=== PATIENT | female | born 1960 | race African-American/Black ===

== ENCOUNTER → 2017-01-25 | Outpatient (CLI) | payer MEDICARE, MEDICAID ==
[~2017-01-25] MED LIST: AMLO10TA4 PO; ASPI-1159 PO; CLON-364; FAMO20TA8 PO; FOLI-43 PO; GABA-531 PO; HYDR-523 PO; IBUP100T54; LISI-604 PO; METF500T PO; OMEP40CA34 PO; OYSTER SHELL CALCIUM PO; SIMV10TA2 PO; [UNRECOGNIZED DRUG - CODE]
== END | disposition home or self-care (01) ==
LOC: MAMMO 09:00
PROVIDERS: ATTEND Internal Medicine Nephrology
DX: Z12.31 Encounter for screening mammogram for malignant neoplasm of breast (principal)
CPT/HCPCS: G0202

== ENCOUNTER → 2017-02-08 | Outpatient (CLI) | payer MEDICARE, MEDICAID | END | disposition home or self-care (01) | LOC: US 09:32 | PROVIDERS: ATTEND Internal Medicine Nephrology | DX: N63 Unspecified lump in breast (principal) | CPT/HCPCS: 76641 ==

== ENCOUNTER → 2017-12-09 | Outpatient (CLI) | payer MEDICARE, MEDICAID | END | disposition home or self-care (01) | LOC: CT 14:14 | PROVIDERS: ATTEND Internal Medicine Nephrology | DX: N20.0 Calculus of kidney (principal); R06.02 Shortness of breath; R63.4 Abnormal weight loss; R05 Cough; Z90.49 Acquired absence of other specified parts of digestive tract | CPT/HCPCS: 71250 ==

== ENCOUNTER 2018-04-21 17:15 | Inpatient (IN) | payer MEDICARE, MEDICAID ==
[~2018-04-21] VITALS: Ht 165.1 cm; Wt 88.5 kg
[2018-04-21] MEDS ORDERED: SODIUM CHLORIDE 0.9% 500 ML IV ONE (18:28)
[2018-04-21] MEDS ORDERED: ONDANSETRON HCL 4MG/2ML INJ IV STA (18:28)
[2018-04-21] MEDS ORDERED: MORPHINE SULFATE 4 MG/ML CPJ (NOT FOR IM USE) IV STA (18:28)
[2018-04-21] MEDS ORDERED: ACETAMINOPHEN 325MG TABLET PO STA (18:28)
[2018-04-21] MEDS ORDERED: VANCOMYCIN 1 G PREMIX 200 ML IV ONE (18:30)
[2018-04-21] MEDS ORDERED: PIPERACILLIN/TAZ 3.375G PREMIX 50 ML IV ONE (18:30)
[2018-04-21] MEDS ORDERED: ASPIRIN 81MG TABLET PO ONE (18:30)
[2018-04-21] MEDS ORDERED: DIPHENHYDRAMINE 50MG/ML VIAL IV ONE ×2 (20:00→20:30)
[2018-04-21 20:15] LABS: HEMATOCRIT. 36.9 % (36.0-48.0); HEMOGLOBIN. 12.5 g/dL (12.0-16.0); MEAN CORPUSCULAR HEMOGLOBIN 29.8 pg (28.0-32.0); MEAN CORPUSCULAR VOLUME 87.9 fL (81.0-99.0); MEAN PLATELET VOLUME 8.2 fl (7.4-10.4); PLATELET 258 x1000/uL (130-400); RED BLOOD CELL COUNT 4.19 mill/uL (4.2-5.4); RED CELL DISTRIBUTION WIDTH 12.8 % (11.6-14.6)
[2018-04-21 20:21] LABS: CHLORIDE 107 mEq/L (98-107); INR 1.1; PROTHROMBIN TIME 11.3 sec (9.1-11.1)
[2018-04-21 20:25] LABS: ETHANOL BLOOD < 10 mg/dL
[2018-04-21 20:30] LABS: CREATINE KINASE 110 IU/L (26-192)
[2018-04-21] MEDS ORDERED: FAMOTIDINE 20MG/2ML VIAL IV ONE (20:30)
[2018-04-21] MEDS ORDERED: MAGNESIUM/ALUMINUM HYDROXIDE/SIMETHICONE 30ML UDC PO ONE (20:30)
[2018-04-21] MEDS ORDERED: IPRATROPIUM/ALBUTEROL 0.5-3(2.5)MG/3ML NEB HHN ONE (20:45)
[2018-04-21] MEDS ORDERED: METHYLPREDNISOLONE SOD SUCC 125 MG/2 ML VIAL IV ONE (20:45)
[2018-04-21 21:02] LABS: PLATELET ESTIMATE NORMAL
[2018-04-21 22:30] VITALS: BP 131/62
[2018-04-21] MEDS ORDERED: ONDANSETRON HCL 4MG/2ML INJ IV PRN (23:00)
[2018-04-21] MEDS ORDERED: MAGNESIUM/ALUMINUM HYDROXIDE/SIMETHICONE 30ML UDC PO PRN (23:00)
[2018-04-21] MEDS ORDERED: LORAZEPAM 2MG/ML CPJ IV PRN (23:00)
[2018-04-21] MEDS: AMLODIPINE 2.5MG TABLET PO SCH (23:25)
[2018-04-21] MEDS ORDERED: DEXTROSE 50% WATER 50ML SYRINGE IV PRN (23:30)
[2018-04-21 23:40] LABS: CLARITY URINE CLOUDY (CLEAR); COLOR URINE YELLOW (YELLOW); KETONES URINE 1+ (NEGATIVE); LEUKOCYTE ESTERASE URINE NEGATIVE (NEGATIVE); NITRITE URINE NEGATIVE (NEGATIVE); OCCULT BLOOD URINE NEGATIVE (NEGATIVE); PROTEIN URINE NEGATIVE (NEGATIVE); SPECIFIC GRAVITY URINE 1.029 (1.005-1.030)
[2018-04-21 23:53] LABS: OPIATES URINE SCREEN PRESUMTIVE POSITIVE (NEGATIVE)
[2018-04-21 23:54] LABS: *BARBITURATES SCREEN URINE NEGATIVE (NEGATIVE); *BENZODIAZEPINES SCREEN URINE NEGATIVE (NEGATIVE); CANNABINOID URINE SCREEN NEGATIVE (NEGATIVE); PHENCYCLIDINE URINE SCREEN NEGATIVE (NEGATIVE)
[2018-04-21 23:55] LABS: *AMPHETAMINES SCREEN URINE NEGATIVE (NEGATIVE); *COCAINE SCREEN URINE NEGATIVE (NEGATIVE); METHADONE URINE SCREEN NEGATIVE (NEGATIVE)
[2018-04-22 01:08] VITALS: BP 115/52
[2018-04-22 04:00] VITALS: BP 117/69
[2018-04-22] MEDS: INSULIN LISPRO 100 UNITS/ML SUBCUT SCH ×4 (06:27→21:03)
[2018-04-22] MEDS: BLOOD SUGAR DIAGNOSTIC STRIP TEST SCH ×4 (06:27→21:02)
[2018-04-22 06:28] LABS: BASOPHILS % 0.1 % (0.0-2.0); HEMATOCRIT. 38.1 % (36.0-48.0); HEMOGLOBIN. 12.8 g/dL (12.0-16.0); LYMPHOCYTES % 11.9 % (20.0-50.0); MEAN CORPUSCULAR HEMOGLOBIN 29.6 pg (28.0-32.0); MEAN CORPUSCULAR VOLUME 87.9 fL (81.0-99.0); MEAN PLATELET VOLUME 8.2 fl (7.4-10.4); MONOCYTES % 1.6 % (2.0-8.0); NEUTROPHILS % 86.4 % (40.0-76.0); PLATELET 266 x1000/uL (130-400); RED BLOOD CELL COUNT 4.34 mill/uL (4.2-5.4)
[2018-04-22] MEDS: ACETAMINOPHEN 325MG TABLET PO PRN (06:31)
[2018-04-22 06:34] LABS: CHLORIDE 107 mEq/L (98-107)
[2018-04-22 06:43] LABS: PHOSPHORUS 4.4 mg/dL (2.5-4.9)
[2018-04-22 06:48] LABS: CREATINE KINASE MB FRACTION < 1.0 ng/mL (0.5-3.6)
[2018-04-22 08:00] VITALS: BP 134/65
[2018-04-22] MEDS ORDERED: PNEUMOCOCCAL 23-VAL P-SAC VAC 0.5 ML IM ONE (08:00)
[2018-04-22] MEDS: AMLODIPINE 2.5MG TABLET PO SCH ×2 (09:02→21:03)
[2018-04-22] MEDS: ENOXAPARIN 40MG/0.4ML SYR SUBCUT SCH (09:03)
[2018-04-22] MEDS ORDERED: INFLUENZA VIRUS VACCINE(AFLURIA) 0.5ML SYR IM ONE (10:00)
[2018-04-22 12:00] VITALS: BP 126/82
[2018-04-22] MEDS ORDERED: AZITHROMYCIN 500 MG in DEXT 5% WATER 250 ML IV SCH ×2 (15:00→20:00)
[2018-04-22 16:00] VITALS: BP 145/61
[2018-04-22 16:33] LABS: CREATINE KINASE MB FRACTION < 1.0 ng/mL (0.5-3.6)
[2018-04-22] MEDS: CEFTRIAXONE 1 G PREMIX 50 ML IV SCH (17:56)
[2018-04-22 20:00] VITALS: BP 137/60
[2018-04-22] MEDS: AZITHROMYCIN 500 MG in DEXT 5% WATER 250 ML IV SCH (20:09)
[2018-04-22] MEDS: PROMETHAZINE/DEXTROMETHORPHAN 6.25-15MG/5ML BOTTLE 120ML PO PRN (21:15)
[2018-04-23] VITALS (7 sets, daily range): BP systolic 118–133; BP diastolic 47–72
[2018-04-23] MEDS: ACETAMINOPHEN 325MG TABLET PO PRN ×2 (02:26→20:13)
[2018-04-23] MEDS: BLOOD SUGAR DIAGNOSTIC STRIP TEST SCH ×4 (07:00→21:00)
[2018-04-23] MEDS: INSULIN LISPRO 100 UNITS/ML SUBCUT SCH ×4 (07:00→21:00)
[2018-04-23] MEDS: PROMETHAZINE/DEXTROMETHORPHAN 6.25-15MG/5ML BOTTLE 120ML PO PRN ×2 (08:03→20:12)
[2018-04-23] MEDS: AMLODIPINE 2.5MG TABLET PO SCH ×2 (09:10→21:05)
[2018-04-23] MEDS: ENOXAPARIN 40MG/0.4ML SYR SUBCUT SCH (09:11)
[2018-04-23] MEDS: CEFTRIAXONE 1 G PREMIX 50 ML IV SCH (15:00)
[2018-04-23] MEDS: AZITHROMYCIN 500 MG in DEXT 5% WATER 250 ML IV SCH (16:08)
[2018-04-23] MEDS ORDERED: AZITHROMYCIN 500 MG in DEXT 5% WATER 250 ML IV SCH (20:00)
[2018-04-24] VITALS: BP 125/58
[2018-04-24 04:00] VITALS: BP 138/62
[2018-04-24] MEDS: BLOOD SUGAR DIAGNOSTIC STRIP TEST SCH ×2 (07:10→11:12)
[2018-04-24] MEDS: INSULIN LISPRO 100 UNITS/ML SUBCUT SCH ×2 (07:34→11:55)
[2018-04-24 07:41] LABS: HEMOGLOBIN. 13.1 g/dL (12.0-16.0); MEAN CORPUSCULAR HEMOGLOBIN 29.6 pg (28.0-32.0); MEAN PLATELET VOLUME 8.5 fl (7.4-10.4); PLATELET 261 x1000/uL (130-400); RED BLOOD CELL COUNT 4.43 mill/uL (4.2-5.4); RED CELL DISTRIBUTION WIDTH 12.9 % (11.6-14.6)
[2018-04-24 08:03] VITALS: BP 130/69
[2018-04-24] MEDS: ENOXAPARIN 40MG/0.4ML SYR SUBCUT SCH (08:05)
[2018-04-24] MEDS: AMLODIPINE 2.5MG TABLET PO SCH (08:05)
[2018-04-24] MEDS: PROMETHAZINE/DEXTROMETHORPHAN 6.25-15MG/5ML BOTTLE 120ML PO PRN (08:05)
[2018-04-24 08:18] LABS: CHLORIDE 106 mEq/L (98-107)
[2018-04-24 08:24] LABS: PHOSPHORUS 3.3 mg/dL (2.5-4.9)
[2018-04-24 11:46] VITALS: BP 138/60
[2018-04-24 12:00] VITALS: BP 138/60
[2018-04-24 12:36] LABS: PLATELET ESTIMATE NORMAL
== END 2018-04-24 14:40 | disposition home or self-care (01) | DRG 202 ==
LOC: ER 17:15 → 8WST 20:43 → EDBEDREQ 20:58 → EDBEDREQSVC 20:59 → ENRESERV 21:09 → CANRESERV 21:09 → ENRESERV 21:54
PROVIDERS: ADMIT Internal Medicine Nephrology; ATTEND Internal Medicine Nephrology
DX: J20.9 Acute bronchitis, unspecified (principal); E44.1 Mild protein-calorie malnutrition; R07.89 Other chest pain; E11.9 Type 2 diabetes mellitus without complications; I10 Essential (primary) hypertension; Z68.32 Body mass index [BMI] 32.0-32.9, adult; Z88.6 Allergy status to analgesic agent; Z88.5 Allergy status to narcotic agent; Z79.899 Other long term (current) drug therapy; Z79.82 Long term (current) use of aspirin; Z79.84 Long term (current) use of oral hypoglycemic drugs
CPT/HCPCS: 36415; 71045; 80048; 80305; 82550; 82553; 82962; 83605; 83735; 83880; 84100; 84145; 84484; 87804; 90686; 90732; 93005; 93306; 94640; 96361; 96365; 96368; 96375; 99285; G0482; J0456; J0696; J1200; J1650; J1815; J2270; J2405; J2543; J2930; J3370; J3490; J7030; J7040; J7050; J7060; J7620

== ENCOUNTER 2018-09-24 08:37 | Emergency (ER) | payer MEDICARE, MEDICAID ==
[~2018-09-24] VITALS: Ht 162.6 cm; Wt 113.0 kg
[2018-09-24] MEDS ORDERED: HYDROCODONE/ACETAMINOPHEN 5/325MG TABLET PO ONE (10:00)
[2018-09-24 10:45] VITALS: BP 127/71
== END 2018-09-24 10:45 | disposition home or self-care (01) ==
LOC: ER 09:09
DX: L84 Corns and callosities (principal); E11.9 Type 2 diabetes mellitus without complications; I10 Essential (primary) hypertension; Z98.890 Other specified postprocedural states; Z79.82 Long term (current) use of aspirin; Z79.899 Other long term (current) drug therapy; Z88.5 Allergy status to narcotic agent
CPT/HCPCS: 73630; 99283

== ENCOUNTER 2018-12-19 16:03 | Emergency (ER) | payer MEDICARE, MEDICAID ==
[~2018-12-19] VITALS: Ht 170.2 cm; Wt 117.0 kg
[~2018-12-19 16:03] MED LIST changes: -ASPI-1159 PO; +ASPI-1393 PO
[2018-12-19] MEDS ORDERED: SODIUM CHLORIDE 0.9% 1,000 ML IV ONE (17:23)
[2018-12-19] MEDS ORDERED: ONDANSETRON HCL 4MG/2ML INJ IV STA (17:23)
[2018-12-19] MEDS ORDERED: KETOROLAC 15MG/ML VIAL IV ONE (17:30)
[2018-12-19 17:56] LABS: BASOPHILS % 0.5 % (0.0-2.0); HEMATOCRIT. 36.7 % (36.0-48.0); HEMOGLOBIN. 12.3 g/dL (12.0-16.0); LYMPHOCYTES % 31.5 % (20.0-50.0); MEAN CORPUSCULAR HEMOGLOBIN 29.4 pg (28.0-32.0); MEAN CORPUSCULAR VOLUME 87.4 fL (81.0-99.0); MONOCYTES % 10.6 % (2.0-8.0); NEUTROPHILS % 55.4 % (40.0-76.0); PLATELET 285 x1000/uL (130-400); RED CELL DISTRIBUTION WIDTH 13.8 % (11.6-14.6)
[2018-12-19 18:03] LABS: PROTHROMBIN TIME 9.9 sec (9.6-11.0)
[2018-12-19 18:05] LABS: CHLORIDE 110 mEq/L (98-107)
[2018-12-19 19:01] LABS: CLARITY URINE CLOUDY (CLEAR); COLOR URINE YELLOW (YELLOW); KETONES URINE NEGATIVE (NEGATIVE); LEUKOCYTE ESTERASE URINE NEGATIVE (NEGATIVE); NITRITE URINE NEGATIVE (NEGATIVE); OCCULT BLOOD URINE NEGATIVE (NEGATIVE); PROTEIN URINE NEGATIVE (NEGATIVE); SPECIFIC GRAVITY URINE 1.029 (1.005-1.030)
[2018-12-19 19:19] VITALS: BP 131/51
== END 2018-12-19 19:20 | disposition home or self-care (01) ==
LOC: ER 16:03
DX: R11.10 Vomiting, unspecified (principal); R19.7 Diarrhea, unspecified; E11.9 Type 2 diabetes mellitus without complications; I10 Essential (primary) hypertension; Z79.82 Long term (current) use of aspirin; Z79.899 Other long term (current) drug therapy; Z88.5 Allergy status to narcotic agent
CPT/HCPCS: 36415; 74176; 80053; 81003; 83690; 85025; 85610; 96361; 96374; 96375; 99284; J1885; J2405; J7030

== ENCOUNTER 2019-03-29 14:35 | Inpatient (IN) | payer MEDICARE, MEDICAID ==
[~2019-03-29] VITALS: Ht 160 cm; Wt 99.8 kg
[2019-03-29] MEDS ORDERED: ONDANSETRON HCL 4MG/2ML INJ IV STA (17:48)
[2019-03-29] MEDS ORDERED: MORPHINE SULFATE 4 MG/ML CPJ (NOT FOR IM USE) IV STA (17:48)
[2019-03-29] MEDS ORDERED: METRONIDAZOLE 500 MG PREMIX 100 ML IV ONE (18:00)
[2019-03-29] MEDS ORDERED: PIPERACILLIN/TAZ 3.375G PREMIX 50 ML IV ONE (18:00)
[2019-03-29 18:06] LABS: BASOPHILS % 0.4 % (0.0-2.0); EOSINOPHILS % 1.3 % (0.0-5.0); HEMATOCRIT. 37.4 % (36.0-48.0); HEMOGLOBIN. 12.6 g/dL (12.0-16.0); LYMPHOCYTES % 35.2 % (20.0-50.0); MEAN CORPUSCULAR HEMOGLOBIN 29.3 pg (28.0-32.0); MEAN CORPUSCULAR VOLUME 86.9 fL (81.0-99.0); MEAN PLATELET VOLUME 8.3 fl (7.4-10.4); MONOCYTES % 12.9 % (2.0-8.0); NEUTROPHILS % 50.2 % (40.0-76.0); PLATELET 324 x1000/uL (130-400); RED CELL DISTRIBUTION WIDTH 13.2 % (11.6-14.6)
[2019-03-29 18:11] LABS: CHLORIDE 109 mEq/L (98-107)
[2019-03-29 18:13] LABS: PARTIAL THROMBOPLASTIN TIME 29.1 sec (23.4-31.0); PROTHROMBIN TIME 10.2 sec (9.6-11.0)
[2019-03-29 18:15] LABS: ETHANOL BLOOD < 10 mg/dL
[2019-03-29] MEDS ORDERED: KETOROLAC 15MG/ML VIAL IV ONE (21:00)
[2019-03-29] MEDS ORDERED: MORPHINE SULFATE 4 MG/ML CPJ (NOT FOR IM USE) IV ONE (21:00)
[2019-03-29] MEDS ORDERED: ONDANSETRON HCL 4MG/2ML INJ IV ONE (21:00)
[2019-03-29] MEDS ORDERED: GUAIFENESIN 200MG/10ML SUGAR FREE UDC PO PRN (21:30)
[2019-03-29] MEDS ORDERED: CLONIDINE 0.1MG TABLET PO PRN (21:30)
[2019-03-29] MEDS ORDERED: TRAMADOL 50MG TABLET PO PRN (21:30)
[2019-03-29] MEDS ORDERED: DOCUSATE SODIUM 100MG CAPSULE PO PRN (21:30)
[2019-03-29] MEDS ORDERED: IPRATROPIUM/ALBUTEROL 0.5-3(2.5)MG/3ML NEB NEB PRN (21:30)
[2019-03-29] MEDS ORDERED: MAGNESIUM/ALUMINUM HYDROXIDE/SIMETHICONE 30ML UDC PO PRN (21:30)
[2019-03-29] MEDS ORDERED: LORAZEPAM 0.5MG TABLET PO PRN (21:30)
[2019-03-29] MEDS ORDERED: KETOROLAC 15MG/ML VIAL IV PRN (21:30)
[2019-03-29] MEDS ORDERED: ENOXAPARIN 40MG/0.4ML SYR SUBCUT SCH (21:30)
[2019-03-29] MEDS ORDERED: ACETAMINOPHEN 325MG TABLET PEG PRN (21:30)
[2019-03-29] MEDS ORDERED: ZOLPIDEM TARTRATE 5MG TABLET PO PRN (21:30)
[2019-03-29] MEDS ORDERED: NA PHOS,M-B/NA PHOS,DI-BA ENEMA 118ML PR PRN (21:30)
[2019-03-29] MEDS ORDERED: NITROGLYCERIN 0.4MG TABLET SL SL PRN (21:30)
[2019-03-29] MEDS ORDERED: DEXTROSE 50% WATER 50ML SYRINGE IV PRN (21:30)
[2019-03-29] MEDS ORDERED: ONDANSETRON HCL 4MG/2ML INJ IV PRN (21:30)
[2019-03-29 22:30] VITALS: BP 143/56
[2019-03-29] MEDS: GABAPENTIN 100MG CAPSULE PO SCH (23:30)
[2019-03-30] VITALS: BP 143/56
[2019-03-30 00:16] LABS: *AMPHETAMINES SCREEN URINE NEGATIVE (NEGATIVE); *BARBITURATES SCREEN URINE NEGATIVE (NEGATIVE); *BENZODIAZEPINES SCREEN URINE NEGATIVE (NEGATIVE); *COCAINE SCREEN URINE NEGATIVE (NEGATIVE)
[2019-03-30 00:17] LABS: CANNABINOID URINE SCREEN NEGATIVE (NEGATIVE); METHADONE URINE SCREEN NEGATIVE (NEGATIVE); OPIATES URINE SCREEN NEGATIVE (NEGATIVE); PHENCYCLIDINE URINE SCREEN NEGATIVE (NEGATIVE)
[2019-03-30] MEDS: METRONIDAZOLE 500 MG PREMIX 100 ML IV SCH ×3 (02:03→23:04)
[2019-03-30] MEDS: GABAPENTIN 100MG CAPSULE PO SCH ×3 (06:32→23:04)
[2019-03-30] MEDS: BLOOD SUGAR DIAGNOSTIC STRIP TEST SCH ×4 (06:35→20:45)
[2019-03-30] MEDS: INSULIN LISPRO 100 UNITS/ML SUBCUT SCH ×4 (07:50→21:02)
[2019-03-30 08:00] VITALS: BP 120/56
[2019-03-30] MEDS: METOPROLOL TARTRATE 25MG TABLET PO SCH ×2 (09:00→20:42)
[2019-03-30] MEDS: AMLODIPINE 10MG TABLET PO SCH (09:25)
[2019-03-30] MEDS: FAMOTIDINE 20MG TABLET PO SCH ×2 (09:25→20:43)
[2019-03-30] MEDS: LISINOPRIL 20MG TABLET PO SCH ×2 (09:26→20:43)
[2019-03-30] MEDS: ENOXAPARIN 30MG/0.3ML SYR SUBCUT SCH ×2 (09:29→20:45)
[2019-03-30 12:00] VITALS: BP 120/56
[2019-03-30] MEDS: HYDROCODONE/ACETAMINOPHEN 10/325MG TABLET PO PRN ×2 (15:38→23:15)
[2019-03-30 16:00] VITALS: BP 125/59
[2019-03-30 20:00] VITALS: BP 123/77
[2019-03-30] MEDS ORDERED: LEVOFLOXACIN 500MG PREMIX 100 ML IV SCH ×2 (21:00)
[2019-03-31] VITALS: BP 101/68
[2019-03-31 04:00] VITALS: BP 93/66
[2019-03-31] MEDS: GABAPENTIN 100MG CAPSULE PO SCH (05:28)
[2019-03-31] MEDS: METRONIDAZOLE 500 MG PREMIX 100 ML IV SCH (05:28)
[2019-03-31] MEDS: BLOOD SUGAR DIAGNOSTIC STRIP TEST SCH (06:22)
[2019-03-31] MEDS: INSULIN LISPRO 100 UNITS/ML SUBCUT SCH (07:35)
[2019-03-31] MEDS: HYDROCODONE/ACETAMINOPHEN 10/325MG TABLET PO PRN (07:46)
[2019-03-31 08:00] VITALS: BP 125/60
[2019-03-31] MEDS: METOPROLOL TARTRATE 25MG TABLET PO SCH (09:00)
[2019-03-31] MEDS: LISINOPRIL 20MG TABLET PO SCH (09:14)
[2019-03-31] MEDS: AMLODIPINE 10MG TABLET PO SCH (09:15)
[2019-03-31] MEDS: FAMOTIDINE 20MG TABLET PO SCH (09:15)
[2019-03-31] MEDS: ENOXAPARIN 30MG/0.3ML SYR SUBCUT SCH (09:17)
[2019-03-31 11:36] VITALS: BP 128/63
[2019-03-31 12:00] VITALS: BP 128/60
== END 2019-03-31 12:19 | disposition home or self-care (01) | DRG 392 ==
LOC: ER 14:35 → EDBEDREQ 21:01 → 6EST 21:20 → EDBEDREQSVC 21:24 → EDBEDREQ 21:24 → EDBEDREQTM 21:24 → SUPCPDRO 21:26 → ENRESERV 21:29
PROVIDERS: ADMIT Internal Medicine; ATTEND Internal Medicine
DX: R19.7 Diarrhea, unspecified (principal); E11.9 Type 2 diabetes mellitus without complications; E66.9 Obesity, unspecified; G89.4 Chronic pain syndrome; I10 Essential (primary) hypertension; Z79.4 Long term (current) use of insulin; Z90.49 Acquired absence of other specified parts of digestive tract; Z88.6 Allergy status to analgesic agent; Z68.39 Body mass index [BMI] 39.0-39.9, adult
CPT/HCPCS: 36415; 71045; 74176; 80061; 80305; 80320; 82962; 83036; 83605; 83880; 84145; 84484; 93005; 93970; 96365; 96366; 96375; 97162; 97165; 99285; J1650; J1815; J1885; J1956; J2270; J2405; J2543; J3490; J7040; G0480

== ENCOUNTER → 2019-04-12 | Outpatient (CLI) | payer MEDICARE, MEDICAID | END | disposition home or self-care (01) | LOC: PVL 09:21 | PROVIDERS: ATTEND Internal Medicine Nephrology | DX: M17.12 Unilateral primary osteoarthritis, left knee (principal); M25.462 Effusion, left knee; I73.9 Peripheral vascular disease, unspecified | CPT/HCPCS: 73560; 93923 ==

== ENCOUNTER 2019-04-15 23:24 | Emergency (ER) | payer MEDICARE, MEDICAID ==
[~2019-04-15] VITALS: Ht 162.6 cm; Wt 100.0 kg
[2019-04-16] MEDS ORDERED: KETOROLAC 60MG/2ML VIAL IM ONE (00:30)
[2019-04-16] MEDS ORDERED: ONDANSETRON 4MG ODT PO ONE (00:30)
[2019-04-16 02:13] VITALS: BP 148/59
== END 2019-04-16 02:19 | disposition home or self-care (01) ==
LOC: ER 23:24
DX: R51 Headache (principal); R07.89 Other chest pain; R10.13 Epigastric pain; V49.50XA Passenger injured in collision with unspecified motor vehicles in traffic accident, initial encounter; Y93.89 Activity, other specified; Y92.411 Interstate highway as the place of occurrence of the external cause; Z79.899 Other long term (current) drug therapy; I10 Essential (primary) hypertension
CPT/HCPCS: 70450; 71045; 72125; 74176; 93005; 99284; Q0162; J1885

== ENCOUNTER 2020-04-06 05:09 | Emergency (ER) | payer OTHER, MEDICAID ==
[~2020-04-06] VITALS: Ht 162.6 cm; Wt 103.0 kg
[~2020-04-06 05:09] MED LIST changes: -ASPI-1393 PO; +ASPI-1497 PO; +OMEP40CA12 PO; -OMEP40CA34 PO
[2020-04-06] MEDS ORDERED: NITROGLYCERIN 0.4MG TABLET SL SL PRN (05:45)
[2020-04-06] MEDS ORDERED: ASPIRIN 81MG TABLET PO ONE (05:45)
[2020-04-06 06:09] LABS: BASOPHILS % 0.4 % (0.0-2.0); CHLORIDE 106 mEq/L (98-107); EOSINOPHILS % 1.4 % (0.0-5.0); HEMATOCRIT. 37.7 % (36.0-48.0); HEMOGLOBIN. 12.7 g/dL (12.0-16.0); LYMPHOCYTES % 21.6 % (20.0-50.0); MEAN CORPUSCULAR HEMOGLOBIN 29.7 pg (28.0-32.0); MEAN CORPUSCULAR VOLUME 88.2 fL (81.0-99.0); MEAN PLATELET VOLUME 8.2 fl (7.4-10.4); MONOCYTES % 10.5 % (2.0-8.0); NEUTROPHILS % 66.1 % (40.0-76.0); PLATELET 312 x1000/uL (130-400); RED BLOOD CELL COUNT 4.28 mill/uL (4.2-5.4); RED CELL DISTRIBUTION WIDTH 13.5 % (11.6-14.6)
[2020-04-06] MEDS ORDERED: ACETAMINOPHEN 325MG TABLET PO ONE (08:45)
[2020-04-06] MEDS ORDERED: ASPIRIN 325MG EC TABLET PO ONE (08:45)
[2020-04-06] MEDS ORDERED: FAMOTIDINE 20MG TABLET PO ONE (08:45)
[2020-04-06 09:31] VITALS: BP 139/76
== END 2020-04-06 09:39 | disposition home or self-care (01) ==
LOC: ER 05:19
DX: R07.89 Other chest pain (principal); I10 Essential (primary) hypertension; E11.9 Type 2 diabetes mellitus without complications; Z90.49 Acquired absence of other specified parts of digestive tract; Z98.890 Other specified postprocedural states; Z79.899 Other long term (current) drug therapy; Z88.5 Allergy status to narcotic agent
CPT/HCPCS: 36415; 71045; 80053; 84484; 85025; 93005; 93971; 99285

== ENCOUNTER 2020-11-09 19:25 | Emergency (ER) | payer OTHER, MEDICAID ==
[~2020-11-09] VITALS: Ht 165.1 cm; Wt 105.0 kg
[~2020-11-09 19:25] MED LIST changes: -GABA-531 PO; +GABA-532 PO; -LISI-604 PO; +LISI20TA31 PO
[2020-11-09] MEDS ORDERED: FLUORESCEIN SODIUM 1MG/STRIP RIGHTEYE ONE (20:00)
[2020-11-09] MEDS ORDERED: TETRACAINE 0.5% OPHTH DROPS 4ML RIGHTEYE ONE (20:00)
[2020-11-09] MEDS ORDERED: IBUPROFEN 600MG TABLET PO ONE (20:30)
[2020-11-09] MEDS ORDERED: IBUP-2028 MT (20:30)
[2020-11-09 21:55] VITALS: BP 151/61
== END 2020-11-09 21:56 | disposition home or self-care (01) ==
LOC: ER 19:25
DX: H57.11 Ocular pain, right eye (principal); R51.9 Headache, unspecified; E11.9 Type 2 diabetes mellitus without complications; I10 Essential (primary) hypertension; Z90.49 Acquired absence of other specified parts of digestive tract; Z79.899 Other long term (current) drug therapy; Z88.5 Allergy status to narcotic agent
CPT/HCPCS: 70480; 99285

== ENCOUNTER 2021-08-07 16:16 | Emergency (ER) | payer BC, OTHER ==
[~2021-08-07] VITALS: Ht 162.6 cm; Wt 125.0 kg
[~2021-08-07 16:16] MED LIST changes: +IBUP-2028 MT; -OMEP40CA12 PO; +OMEP40CA20 PO
[2021-08-07 17:15] VITALS: BP 159/63
[2021-08-07] MEDS ORDERED: IBUPROFEN 600MG TABLET PO ONE (17:15)
[2021-08-07] MEDS ORDERED: LIDOCAINE HCL 1% 20ML VIAL (Pyxis) INJ INFIL ONE (17:30)
[2021-08-07] MEDS ORDERED: CEPH500C2 MT (17:30)
[2021-08-07] MEDS ORDERED: BACITRACIN ZINC OINT UDPKT TOP ONE (17:30)
[2021-08-07] MEDS ORDERED: IBUP-2029 MT (17:31)
[2021-08-07] MEDS ORDERED: LIDOCAINE HCL 1% 10 MG/ML 10ML VIAL IJ NR (17:45)
== END 2021-08-07 18:23 | disposition home or self-care (01) ==
LOC: ER 16:16
DX: L03.011 Cellulitis of right finger (principal); E11.9 Type 2 diabetes mellitus without complications; I10 Essential (primary) hypertension; Z88.5 Allergy status to narcotic agent; Z79.899 Other long term (current) drug therapy; Z90.49 Acquired absence of other specified parts of digestive tract; Z98.890 Other specified postprocedural states
CPT/HCPCS: 10060; 73140; 99283; J3490

== ENCOUNTER 2022-07-31 01:02 | Inpatient (IN) | payer MEDICARE, MEDICAID ==
[~2022-07-31] VITALS: Ht 162.6 cm; Wt 131.5 kg
[~2022-07-31 01:02] MED LIST changes: +IBUP-2029 MT; +SIMV-341 PO; -SIMV10TA2 PO
[2022-07-31] MEDS ORDERED: ASPIRIN 81MG TABLET PO ONE (04:15)
[2022-07-31] MEDS: NITROGLYCERIN 0.4MG TABLET SL SL PRN ×2 (05:18→05:21)
[2022-07-31 05:30] LABS: BASOPHILS % 1.2 % (0.0-2.0); EOSINOPHILS % 1.5 % (0.0-5.0); HEMATOCRIT. 41.7 % (36.0-48.0); HEMOGLOBIN. 13.9 g/dL (12.0-16.0); LYMPHOCYTES % 30.4 % (20.0-50.0); MEAN CORPUSCULAR HEMOGLOBIN 29.8 pg (28.0-32.0); MEAN CORPUSCULAR VOLUME 89.2 fL (81.0-99.0); MEAN PLATELET VOLUME 8.3 fl (7.4-10.4); MONOCYTES % 8.9 % (2.0-8.0); PLATELET 333 x1000/uL (130-400); RED BLOOD CELL COUNT 4.68 mill/uL (4.2-5.4)
[2022-07-31 05:36] LABS: CHLORIDE 101 mEq/L (98-107)
[2022-07-31] MEDS ORDERED: IOHEXOL-350 100 ML BOTTLE ONE (07:18)
[2022-07-31] MEDS ORDERED: ACETAMINOPHEN 325MG TABLET PO PRN (11:15)
[2022-07-31] MEDS ORDERED: DEXTROSE 50% WATER 50ML SYRINGE IV PRN (11:15)
[2022-07-31] MEDS ORDERED: ONDANSETRON HCL 4MG/2ML INJ IV PRN (11:15)
[2022-07-31] MEDS ORDERED: METF-414 PO (11:54)
[2022-07-31] MEDS ORDERED: AMLO5TAB4 PO (11:54)
[2022-07-31] MEDS ORDERED: APIX5TAB PO (11:54)
[2022-07-31] MEDS ORDERED: SPIR25TA6 PO (11:54)
[2022-07-31] MEDS ORDERED: SIMV-43 PO (11:54)
[2022-07-31] MEDS ORDERED: AMIT25TA9 PO (11:54)
[2022-07-31] MEDS ORDERED: FURO20TA4 PO (11:54)
[2022-07-31] MEDS ORDERED: TRAM50TA3 PO (11:54)
[2022-07-31] MEDS ORDERED: HYDR100T26 PO (11:54)
[2022-07-31] MEDS ORDERED: FERR325T30 PO (11:54)
[2022-07-31 11:57] VITALS: BP 168/72
[2022-07-31] MEDS: INSULIN LISPRO 100 UNITS/ML SUBCUT SCH ×2 (12:27→17:13)
[2022-07-31] MEDS: BLOOD SUGAR DIAGNOSTIC STRIP TEST SCH ×2 (12:27→16:56)
[2022-07-31] MEDS ORDERED: HYDRALAZINE HCL 100MG TABLET PO NR (12:30)
[2022-07-31] MEDS ORDERED: HYDROCODONE/ACETAMINOPHEN 5/325MG TABLET PO NR (12:30)
[2022-07-31] MEDS ORDERED: FUROSEMIDE 40MG TABLET PO SCH (12:30)
[2022-07-31] MEDS ORDERED: HYDROCODONE/ACETAMINOPHEN 5/325MG TABLET PO PRN (12:30)
[2022-07-31] MEDS ORDERED: AMLODIPINE 10MG TABLET PO SCH (12:30)
[2022-07-31] MEDS ORDERED: HYDRALAZINE 20MG/ML VIAL IV PRN (13:00)
[2022-07-31 13:23] VITALS: BP 168/72
[2022-07-31 15:56] VITALS: BP 138/59
[2022-07-31] MEDS ORDERED: APIXABAN 5 MG TABLET PO SCH (17:00)
[2022-07-31] MEDS ORDERED: LISINOPRIL 40MG TABLET PO SCH (17:00)
[2022-07-31 20:56] LABS: CLARITY URINE CLEAR (CLEAR); COLOR URINE YELLOW (YELLOW); KETONES URINE NEGATIVE (NEGATIVE); LEUKOCYTE ESTERASE URINE NEGATIVE (NEGATIVE); NITRITE URINE NEGATIVE (NEGATIVE); OCCULT BLOOD URINE NEGATIVE (NEGATIVE); PROTEIN URINE NEGATIVE (NEGATIVE); SPECIFIC GRAVITY URINE 1.009 (1.005-1.030); UROBILINOGEN URINE 0.2 E.U./dL (0.2-1.0)
[2022-07-31] MEDS ORDERED: ATORVASTATIN CALCIUM 10MG TABLET PO SCH (21:00)
[2022-07-31] MEDS ORDERED: HYDRALAZINE HCL 100MG TABLET PO SCH (22:00)
== END 2022-07-31 20:45 | disposition home or self-care (01) | DRG 291 ==
LOC: ER 01:02 → EDBEDREQ 06:38 → 7WST 10:40
PROVIDERS: ADMIT Internal Medicine; ATTEND Internal Medicine
DX: I11.0 Hypertensive heart disease with heart failure (principal); I50.33 Acute on chronic diastolic (congestive) heart failure; E11.65 Type 2 diabetes mellitus with hyperglycemia; R20.2 Paresthesia of skin; E66.9 Obesity, unspecified; R26.2 Difficulty in walking, not elsewhere classified; I08.1 Rheumatic disorders of both mitral and tricuspid valves; I45.10 Unspecified right bundle-branch block; E78.5 Hyperlipidemia, unspecified; Z79.01 Long term (current) use of anticoagulants; Z79.899 Other long term (current) drug therapy; Z82.3 Family history of stroke; Z86.718 Personal history of other venous thrombosis and embolism; Z90.49 Acquired absence of other specified parts of digestive tract; Z88.5 Allergy status to narcotic agent
CPT/HCPCS: 36415; 71045; 71275; 72141; 72146; 80053; 81003; 82962; 83880; 84484; 85025; 85379; 93005; 93970; 97162; 99285; J1815; Q9967

== ENCOUNTER 2024-02-12 15:52 | Emergency (ER) | payer BC, MEDICAID ==
[~2024-02-12] VITALS: Ht 175.3 cm; Wt 127.9 kg
[~2024-02-12 15:52] MED LIST changes: +AMIT25TA9 PO; -AMLO10TA4 PO; +AMLO5TAB4 PO; +APIX5TAB PO; -CLON-364; +FERR325T30 PO; +FURO20TA4 PO; +HYDR100T11 PO; -IBUP100T54; +METF-414 PO; -METF500T PO; -OYSTER SHELL CALCIUM PO; -SIMV-341 PO; +SIMV-43 PO; +SPIR25TA6 PO; +TRAM50TA3 PO; -[UNRECOGNIZED DRUG - CODE]
[2024-02-12 16:08] VITALS: O2SAT 99
[2024-02-12 18:00] LABS: BASOPHILS % 0.5 % (0.0-2.0); EOSINOPHILS % 1.6 % (0.0-5.0); HEMATOCRIT. 40.3 % (36.0-48.0); HEMOGLOBIN. 13.5 g/dL (12.0-16.0); LYMPHOCYTES % 32.7 % (20.0-50.0); MEAN CORPUSCULAR HEMOGLOBIN 30.3 pg (28.0-32.0); MEAN CORPUSCULAR HGB CONC 33.5 g/dL (31.0-37.0); MEAN CORPUSCULAR VOLUME 90.5 fL (81.0-99.0); MEAN PLATELET VOLUME 7.8 fl (7.4-10.4); MONOCYTES % 13.7 % (2.0-8.0); NEUTROPHILS % 51.5 % (40.0-76.0); PLATELET 338 x1000/uL (130-400); RED BLOOD CELL COUNT 4.45 mill/uL (4.2-5.4); RED CELL DISTRIBUTION WIDTH 13.2 % (11.6-14.6); WHITE BLOOD COUNT 8.2 x1000/uL (4.5-11.0)
[2024-02-12 18:05] LABS: POTASSIUM 4.1 mEq/L (3.5-5.1)
[2024-02-12 18:06] LABS: CALCIUM 9.5 mg/dL (8.7-10.4)
[2024-02-12 18:11] LABS: CREATININE 1.3 mg/dL (0.6-1.0)
[2024-02-12 23:42] LABS: ALANINE AMINOTRANSFERASE 34 IU/L (10-49); ALBUMIN 4.4 g/dL (3.2-4.8); ASPARTATE AMINOTRANSFERASE 29 IU/L (<34); BILIRUBIN DIRECT 0.2 mg/dL (<=3.0); BILIRUBIN TOTAL 0.5 mg/dL (0.1-1.0); PROTEIN TOTAL 7.3 g/dL (6.0-8.3); TROPONIN I HIGH SENSITIVITY < 4 ng/L (3.0-34)
[2024-02-13 03:14] VITALS: BP 142/78; PULSE 74; RESP 18; TEMP 37.0852
[2024-02-13 03:37] LABS: TROPONIN I HIGH SENSITIVITY < 4 ng/L (3.0-34)
[2024-02-13 08:00] VITALS: BP 145/71; PULSE 94; RESP 18; TEMP 37.00296; O2SAT 99
== END 2024-02-13 03:25 | disposition admitted as inpatient to this hospital (09) ==
LOC: ER 15:52 → UNDOADMIN 02-13 00:14 → 5WST 02-13 00:14 → 7WST 02-13 03:11 → UNDODISIN 02-13 12:31
DX: R60.0 Localized edema (principal); R06.02 Shortness of breath; E11.9 Type 2 diabetes mellitus without complications; I10 Essential (primary) hypertension; Z90.49 Acquired absence of other specified parts of digestive tract; Z79.899 Other long term (current) drug therapy
CPT/HCPCS: 36415; 71045; 80048; 80076; 83880; 84484; 85025; 93005; 93970; 99285

== ENCOUNTER 2024-10-08 12:46 | Emergency (ER) | payer BC ==
[~2024-10-08] VITALS: Ht 162.6 cm; Wt 120.0 kg
[~2024-10-08 12:46] MED LIST changes: -AMLO5TAB4 PO; +AMLO5TAB5 PO; +GABA-1180 PO; -GABA-532 PO
[2024-10-08 12:49] VITALS: O2SAT 100
[2024-10-08 12:54] VITALS: BP 159/69; PULSE 68; RESP 14; TEMP 36.9; O2SAT 99
[2024-10-08 14:43] LABS: BASOPHILS % 0.9 % (0.0-2.0); EOSINOPHILS % 0.9 % (0.0-5.0); HEMATOCRIT. 37.6 % (36.0-48.0); HEMOGLOBIN. 12.7 g/dL (12.0-16.0); LYMPHOCYTES % 31.5 % (20.0-50.0); MEAN CORPUSCULAR HEMOGLOBIN 30.1 pg (28.0-32.0); MEAN CORPUSCULAR HGB CONC 33.7 g/dL (31.0-37.0); MEAN CORPUSCULAR VOLUME 89.2 fL (81.0-99.0); MEAN PLATELET VOLUME 8.6 fl (7.4-10.4); MONOCYTES % 8.8 % (2.0-8.0); NEUTROPHILS % 57.9 % (40.0-76.0); PLATELET 306 x1000/uL (130-400); RED BLOOD CELL COUNT 4.22 mill/uL (4.2-5.4); RED CELL DISTRIBUTION WIDTH 12.7 % (11.6-14.6); WHITE BLOOD COUNT 8.2 x1000/uL (4.5-11.0)
[2024-10-08 14:50] LABS: CHLORIDE 104 mEq/L (98-107); POTASSIUM 4.1 mEq/L (3.5-5.1); SODIUM 138 mEq/L (136-145)
[2024-10-08 14:51] LABS: CARBON DIOXIDE 27 mEq/L (21-32)
[2024-10-08 14:52] LABS: CALCIUM 9.4 mg/dL (8.7-10.4)
[2024-10-08 15:43] LABS: CREATININE 0.9 mg/dL (0.6-1.0); GLUCOSE 152 mg/dL (70-105); UREA NITROGEN BLOOD 19 mg/dL (9-23)
[2024-10-08 15:44] LABS: TROPONIN I HIGH SENSITIVITY < 4 ng/L (3.0-34)
== END 2024-10-08 16:08 | disposition home or self-care (01) ==
LOC: ER 12:46
DX: R07.89 Other chest pain (principal); I10 Essential (primary) hypertension; E11.9 Type 2 diabetes mellitus without complications; Z79.899 Other long term (current) drug therapy; Z79.84 Long term (current) use of oral hypoglycemic drugs; Z79.82 Long term (current) use of aspirin; Z79.01 Long term (current) use of anticoagulants; Z86.718 Personal history of other venous thrombosis and embolism; Z90.49 Acquired absence of other specified parts of digestive tract; Z88.5 Allergy status to narcotic agent
CPT/HCPCS: 36415; 71045; 80048; 84484; 85025; 93005; 99285

== ENCOUNTER 2024-12-21 00:32 | Emergency (ER) | payer BC ==
[~2024-12-21] VITALS: Ht 157.5 cm; Wt 113.0 kg
[2024-12-21 00:39] VITALS: O2SAT 98
[2024-12-21] MEDS: ONDANSETRON 4MG ODT PO ONE (01:59)
[2024-12-21] MEDS: MAGNESIUM/ALUMINUM HYDROXIDE/SIMETHICONE 30ML UDC PO STA (01:59)
[2024-12-21 02:19] LABS: CREATININE 1.0 mg/dL (0.6-1.0)
[2024-12-21 02:20] LABS: UREA NITROGEN BLOOD 19 mg/dL (9-23)
[2024-12-21 02:21] LABS: ASPARTATE AMINOTRANSFERASE 19 IU/L (<34)
[2024-12-21 02:22] LABS: BILIRUBIN DIRECT 0.2 mg/dL (<=3.0); BILIRUBIN TOTAL 0.6 mg/dL (0.1-1.0); PROTEIN TOTAL 7.0 g/dL (6.0-8.3)
[2024-12-21 02:39] LABS: BASOPHILS % 0.4 % (0.0-2.0); EOSINOPHILS % 1.3 % (0.0-5.0); HEMATOCRIT. 41.3 % (36.0-48.0); HEMOGLOBIN. 14.2 g/dL (12.0-16.0); LYMPHOCYTES % 35.3 % (20.0-50.0); MEAN PLATELET VOLUME 8.9 fl (7.4-10.4); MONOCYTES % 11.8 % (2.0-8.0); NEUTROPHILS % 51.2 % (40.0-76.0); PLATELET 297 x1000/uL (130-400); RED BLOOD CELL COUNT 4.70 mill/uL (4.2-5.4); RED CELL DISTRIBUTION WIDTH 13.0 % (11.6-14.6)
[2024-12-21 02:41] LABS: INR 1.0
[2024-12-21 04:42] LABS: CLARITY URINE CLEAR (CLEAR); COLOR URINE YELLOW (YELLOW); GLUCOSE URINE NEGATIVE (NEGATIVE); KETONES URINE NEGATIVE (NEGATIVE); LEUKOCYTE ESTERASE URINE NEGATIVE (NEGATIVE); NITRITE URINE NEGATIVE (NEGATIVE); OCCULT BLOOD URINE NEGATIVE (NEGATIVE); PH URINE 5.5 (4.5-8.0); PROTEIN URINE NEGATIVE (NEGATIVE); SPECIFIC GRAVITY URINE 1.011 (1.005-1.030); UROBILINOGEN URINE 0.2 E.U./dL (0.2-1.0)
[2024-12-21 05:30] VITALS: BP 153/71; PULSE 63; RESP 19; TEMP 36.7; O2SAT 100
[2024-12-21] MEDS ORDERED: ACET-2708 MT (05:45)
== END 2024-12-21 06:28 | disposition home or self-care (01) ==
LOC: ER 00:32
DX: R11.2 Nausea with vomiting, unspecified (principal); R19.7 Diarrhea, unspecified; I10 Essential (primary) hypertension; E11.9 Type 2 diabetes mellitus without complications; Z90.49 Acquired absence of other specified parts of digestive tract; Z79.899 Other long term (current) drug therapy; Z88.5 Allergy status to narcotic agent; Z98.890 Other specified postprocedural states
CPT/HCPCS: 99284; 74176; 80076; 80048; 81003; 83690; 85025; 85610; 36415; Q0162

== ENCOUNTER 2025-04-07 07:20 | Inpatient (IN) | payer BC, MEDICAID ==
[2025-04-07] VITALS (48 sets, daily range): BP systolic 87–202; BP diastolic 35–180; PULSE 48–92; RESP 15–36; TEMP 36.4–36.6696; O2SAT 96–100
[~2025-04-07] VITALS: Ht 162.6 cm; Wt 117.5 kg
[~2025-04-07 07:20] MED LIST changes: +ACET-2708 MT; +AMIT25TA21 PO; -AMIT25TA9 PO; -AMLO5TAB5 PO; +AMLO5TAB6 PO; +IBUP-1455 MT; -IBUP-2029 MT
[2025-04-07] MEDS: SODIUM CHLORIDE 0.9% 1,000 ML IV ONE (08:17)
[2025-04-07] MEDS: KETOROLAC 15MG/ML VIAL IV ONE (08:18)
[2025-04-07] MEDS: ONDANSETRON HCL 4MG/2ML INJ IV ONE (08:18)
[2025-04-07 08:21] LABS: BASOPHILS % 0.3 % (0.0-2.0); EOSINOPHILS % 0.1 % (0.0-5.0); HEMATOCRIT. 39.6 % (36.0-48.0); HEMOGLOBIN. 12.8 g/dL (12.0-16.0); LYMPHOCYTES % 16.1 % (20.0-50.0); MEAN PLATELET VOLUME 8.8 fl (7.4-10.4); MONOCYTES % 3.3 % (2.0-8.0); NEUTROPHILS % 80.2 % (40.0-76.0); PLATELET 330 x1000/uL (130-400); RED BLOOD CELL COUNT 4.36 mill/uL (4.2-5.4); RED CELL DISTRIBUTION WIDTH 12.9 % (11.6-14.6)
[2025-04-07 08:35] LABS: UREA NITROGEN BLOOD 45 mg/dL (9-23)
[2025-04-07 08:37] LABS: ASPARTATE AMINOTRANSFERASE 16 IU/L (<34); BILIRUBIN DIRECT 0.1 mg/dL (<=3.0); BILIRUBIN TOTAL 0.3 mg/dL (0.1-1.0); PROTEIN TOTAL 7.3 g/dL (6.0-8.3)
[2025-04-07 08:42] LABS: CREATININE 10.6 mg/dL (0.6-1.0)
[2025-04-07] MEDS: PIPERACILLIN/TAZO 3.375G/50ML 50 ML IV ONE (09:58)
[2025-04-07] MEDS: SODIUM CHLORIDE 0.9% (SEPSIS BOLUS) IV ONE (10:10)
[2025-04-07] MEDS: VANCOMYCIN 1G PREMIX 200 ML IV ONE (10:28)
[2025-04-07] MEDS ORDERED: DEXTROSE 50% WATER 50ML SYRINGE IV PRN (10:45)
[2025-04-07] MEDS ORDERED: LORAZEPAM 2MG/ML UD SYRINGE IV PRN (11:00)
[2025-04-07] MEDS: ENOXAPARIN 30MG/0.3ML SYR SUBCUT SCH (11:00)
[2025-04-07] MEDS: ONDANSETRON HCL 4MG/2ML INJ IV SCH (11:22)
[2025-04-07] MEDS: FAMOTIDINE 20MG/2ML VIAL IV SCH (11:51)
[2025-04-07 12:03] LABS: BG BASE EXCESS -25.2 mmol/L (-2.0-3.0); BG CARBOXYHEMOGLOBIN 0.7 % (0.5-1.5); BG DEOXYHEMOGLOBIN 2.4 % (0.0-5.0); BG FRACTION INSPIRED OXYGEN 21; BG HCO3 ACT 4.6 mmol/L (21.0-28.0); BG METHEMOGLOBIN 0.3 % (0.5-1.5); BG OXYGEN SATURATION 97.6 % (94.0-98.0); BG OXYHEMOGLOBIN 96.6 % (94.0-98.0); BG PCO2 19.1 mmHg (32.0-45.0); BG PH 6.999 (7.350-7.450); BG PO2 128.8 mmHg (83.0-108.0); BG SAMPLE SITE RIGHT RADIAL; BG TOTAL HEMOGLOBIN 13.6 g/dL (12.0-16.0); BG VENT MODE ROOM AIR
[2025-04-07] MEDS ORDERED: SODIUM BICARBONATE 8.4% 50MEQ/50ML SYR IV NR (12:30)
[2025-04-07] MEDS: SODIUM BICARBONATE 8.4% 50MEQ/50ML SYR IV NR (12:46)
[2025-04-07] MEDS: BLOOD SUGAR DIAGNOSTIC STRIP TEST SCH (13:00)
[2025-04-07] MEDS ORDERED: SODIUM BICARBONATE 150 MEQ in DEXTROSE 5% WATER 850 ML IV SCH (13:00)
[2025-04-07] MEDS: INSULIN LISPRO 100 UNITS/ML SUBCUT SCH (13:20)
[2025-04-07] MEDS: SODIUM BICARBONATE 100 MEQ in DEXTROSE 5% WATER 900 ML IV SCH (14:18)
[2025-04-07 14:40] LABS: BG BASE EXCESS -29.0 mmol/L (-2.0-3.0); BG CARBOXYHEMOGLOBIN 0.3 % (0.5-1.5); BG DEOXYHEMOGLOBIN 2.1 % (0.0-5.0); BG FRACTION INSPIRED OXYGEN 21; BG HCO3 ACT 2.7 mmol/L (21.0-28.0); BG METHEMOGLOBIN 0.3 % (0.5-1.5); BG OXYGEN SATURATION 97.9 % (94.0-98.0); BG OXYHEMOGLOBIN 97.3 % (94.0-98.0); BG PCO2 14.3 mmHg (32.0-45.0); BG PH 6.891 (7.350-7.450); BG PO2 141.5 mmHg (83.0-108.0); BG SAMPLE SITE RIGHT RADIAL; BG TOTAL HEMOGLOBIN 12.2 g/dL (12.0-16.0); BG VENT MODE ROOM AIR
[2025-04-07 14:50] LABS: TROPONIN I HIGH SENSITIVITY 9 ng/L (3.0-34)
[2025-04-07] MEDS: SODIUM BICARBONATE 8.4% 50MEQ/50ML SYR IV SCH ×2 (15:02)
[2025-04-07 15:15] LABS: TRIGLYCERIDE 157 mg/dL (0-150)
[2025-04-07 15:16] LABS: LDL CHOLESTEROL 77 mg/dL (5-100)
[2025-04-07 15:17] LABS: PHOSPHORUS 7.6 mg/dL (2.5-4.9)
[2025-04-07 15:19] LABS: T4 FREE 1.13 ng/dL (0.89-1.76)
[2025-04-07 16:23] LABS: BG BASE EXCESS -28.3 mmol/L (-2.0-3.0); BG CARBOXYHEMOGLOBIN 0.3 % (0.5-1.5); BG DEOXYHEMOGLOBIN 2.0 % (0.0-5.0); BG FRACTION INSPIRED OXYGEN 21; BG HCO3 ACT 2.6 mmol/L (21.0-28.0); BG METHEMOGLOBIN 0.3 % (0.5-1.5); BG OXYGEN SATURATION 98.0 % (94.0-98.0); BG OXYHEMOGLOBIN 97.4 % (94.0-98.0); BG PCO2 12.9 mmHg (32.0-45.0); BG PH 6.927 (7.350-7.450); BG PO2 148.7 mmHg (83.0-108.0); BG SAMPLE SITE RIGHT RADIAL; BG TOTAL HEMOGLOBIN 12.3 g/dL (12.0-16.0); BG VENT MODE ROOM AIR
[2025-04-07] MEDS ORDERED: ACETAMINOPHEN 650MG SUPP PR SCH (17:45)
[2025-04-07] MEDS: SODIUM BICARBONATE 150 MEQ in DEXTROSE 5% WATER 850 ML IV SCH (17:50)
[2025-04-07] MEDS: LORAZEPAM 2MG/ML UD SYRINGE IV NR (18:20)
[2025-04-07] MEDS: LIDOCAINE 5% PATCH TOP SCH (18:37)
[2025-04-07] MEDS ORDERED: ACETAMINOPHEN 1000MG/100ML 100 ML IV NR (19:00)
[2025-04-07 19:08] LABS: HEMATOCRIT. 36.8 % (36.0-48.0); HEMOGLOBIN. 11.1 g/dL (12.0-16.0); MEAN PLATELET VOLUME 9.5 fl (7.4-10.4); PLATELET 317 x1000/uL (130-400); RED BLOOD CELL COUNT 3.76 mill/uL (4.2-5.4); RED CELL DISTRIBUTION WIDTH 13.6 % (11.6-14.6)
[2025-04-07 19:24] LABS: UREA NITROGEN BLOOD 45 mg/dL (9-23)
[2025-04-07 19:27] LABS: LYMPHOCYTES % MANUAL 9.0 % (20.0-60.0); MONOCYTES % MANUAL 5.0 % (2.0-8.0); NEUTROPHILS % MANUAL 86.0 % (45.0-75.0); PLATELET ESTIMATE NORMAL
[2025-04-07] MEDS: SODIUM CHLORIDE 0.9% 250 ML IV ONE (19:30)
[2025-04-07 19:37] LABS: PHOSPHORUS 10.2 mg/dL (2.5-4.9)
[2025-04-07 19:38] LABS: CREATININE 10.2 mg/dL (0.6-1.0)
[2025-04-07] MEDS: NOREPINEPHRINE 8MG/250ML PMX 250 ML IV PRN (20:12)
[2025-04-07 20:22] LABS: HEPATITIS A AB IGM NEGATIVE (Negative)
[2025-04-07 20:23] LABS: HEPATITIS B CORE AB IGM NEGATIVE (Negative); HEPATITIS C AB NON REACTIVE (Neg) (Negative)
[2025-04-07] MEDS ORDERED: LEVETIRACETAM 500MG in NACL 100ML PREMIX IV SCH (21:00)
[2025-04-07] MEDS: LEVETIRACETAM 500MG PREMIX 100 ML IV SCH (21:22)
[2025-04-07] MEDS: MIDAZOLAM 100MG/100ML PMX 100 ML IV PRN (21:23)
[2025-04-08] VITALS (97 sets, daily range): BP systolic 72–180; BP diastolic 34–75; PULSE 59–108; RESP 12–28; TEMP 33.9–37.4; O2SAT 91–100
[2025-04-08 00:01] LABS: BG BASE EXCESS -24.8 mmol/L (-2.0-3.0); BG CARBOXYHEMOGLOBIN 0.0 % (0.5-1.5); BG DEOXYHEMOGLOBIN 0.3 % (0.0-5.0); BG FRACTION INSPIRED OXYGEN 100; BG HCO3 ACT 5.2 mmol/L (21.0-28.0); BG METHEMOGLOBIN 0.3 % (0.5-1.5); BG OXYGEN SATURATION 99.7 % (94.0-98.0); BG OXYHEMOGLOBIN 99.4 % (94.0-98.0); BG PCO2 21.9 mmHg (32.0-45.0); BG PEEP (cmH2O) 5.0 cmH2O; BG PH 6.991 (7.350-7.450); BG PO2 433.3 mmHg (83.0-108.0); BG SAMPLE SITE RIGHT RADIAL; BG TIDAL VOLUME(mL) 500.0 mL; BG TOTAL HEMOGLOBIN 11.9 g/dL (12.0-16.0); BG VENT MODE VENT - AC; BG VENT RATE 16.0 set
[2025-04-08] MEDS ORDERED: VASOPRESSIN 20 UNIT in SODIUM CHLORIDE 0.9% 99 ML IV PRN (00:15)
[2025-04-08] MEDS: SODIUM BICARBONATE 8.4% 50MEQ/50ML SYR IV NR ×3 (00:27→08:42)
[2025-04-08] MEDS: DEXTROSE 5% WATER 1,000 ML IV SCH (00:28)
[2025-04-08] MEDS: FENTANYL 2500MCG/250ML PMX 250 ML IV PRN (00:34)
[2025-04-08] MEDS: NOREPINEPHRINE 32 MG in DEXT 5% WATER 218 ML IV PRN (01:26)
[2025-04-08] MEDS: PHENYLEPHRINE 50MG/250ML PMX 250 ML IV PRN (01:54)
[2025-04-08] MEDS: PROPOFOL 10MG/ML 100ML 100 ML IV PRN (01:55)
[2025-04-08 03:53] LABS: UREA NITROGEN BLOOD 30 mg/dL (9-23)
[2025-04-08 03:55] LABS: PHOSPHORUS 5.5 mg/dL (2.5-4.9)
[2025-04-08 04:10] LABS: CREATININE 6.2 mg/dL (0.6-1.0)
[2025-04-08] MEDS: PIPERACILLIN/TAZO 3.375G/50ML 50 ML IV SCH (05:46)
[2025-04-08 05:50] LABS: UREA NITROGEN BLOOD 27 mg/dL (9-23)
[2025-04-08 05:52] LABS: HEMATOCRIT. 33.9 % (36.0-48.0); HEMOGLOBIN. 10.7 g/dL (12.0-16.0); MEAN PLATELET VOLUME 9.5 fl (7.4-10.4); PHOSPHORUS 5.7 mg/dL (2.5-4.9); PLATELET 215 x1000/uL (130-400); RED BLOOD CELL COUNT 3.60 mill/uL (4.2-5.4); RED CELL DISTRIBUTION WIDTH 13.2 % (11.6-14.6)
[2025-04-08 05:55] LABS: CREATININE 6.3 mg/dL (0.6-1.0)
[2025-04-08 06:02] LABS: ASPARTATE AMINOTRANSFERASE 64 IU/L (<34); BILIRUBIN DIRECT 0.3 mg/dL (<=3.0); BILIRUBIN TOTAL 0.5 mg/dL (0.1-1.0)
[2025-04-08 06:06] LABS: PROTEIN TOTAL 5.3 g/dL (6.0-8.3)
[2025-04-08] MEDS: VANCOMYCIN 500MG PREMIX 100 ML IV SCH (06:15)
[2025-04-08] MEDS: PHENYLEPHRINE 100 MG in DEXT 5% WATER 240 ML IV PRN (06:22)
[2025-04-08] MEDS: IPRATROPIUM/ALBUTEROL 0.5-3(2.5)MG/3ML NEB HHN SCH (08:18)
[2025-04-08] MEDS: LACTULOSE 20G/30ML UDC PO SCH (08:41)
[2025-04-08 09:08] LABS: PLATELET 204 x1000/uL (130-400); RED BLOOD CELL COUNT 3.29 mill/uL (4.2-5.4); RED CELL DISTRIBUTION WIDTH 13.1 % (11.6-14.6)
[2025-04-08] MEDS: ENOXAPARIN 40MG/0.4ML SYR SUBCUT SCH (09:09)
[2025-04-08 09:21] LABS: UREA NITROGEN BLOOD 29 mg/dL (9-23)
[2025-04-08 09:22] LABS: CREATININE 6.5 mg/dL (0.6-1.0)
[2025-04-08 09:23] LABS: PHOSPHORUS 5.6 mg/dL (2.5-4.9)
[2025-04-08] MEDS: PANTOPRAZOLE SODIUM 40 MG/VIAL IV SCH (12:47)
[2025-04-08] MEDS: RIFAXIMIN 550 MG TABLET NG SCH (12:47)
[2025-04-08] MEDS: LACTATED RINGERS 1,000 ML IV SCH (13:40)
[2025-04-08 14:33] LABS: BG BASE EXCESS -7.5 mmol/L (-2.0-3.0); BG CARBOXYHEMOGLOBIN 0.4 % (0.5-1.5); BG DEOXYHEMOGLOBIN 2.4 % (0.0-5.0); BG FRACTION INSPIRED OXYGEN 30; BG HCO3 ACT 15.2 mmol/L (21.0-28.0); BG METHEMOGLOBIN 0.0 % (0.5-1.5); BG OXYGEN SATURATION 97.6 % (94.0-98.0); BG OXYHEMOGLOBIN 97.2 % (94.0-98.0); BG PCO2 23.6 mmHg (32.0-45.0); BG PEEP (cmH2O) 5.0 cmH2O; BG PH 7.428 (7.350-7.450); BG PO2 94.6 mmHg (83.0-108.0); BG SAMPLE SITE RIGHT RADIAL; BG TIDAL VOLUME(mL) 500.0 mL; BG TOTAL HEMOGLOBIN 11.2 g/dL (12.0-16.0); BG TOTAL RESPIRATORY RATE 26 b/min; BG VENT MODE VENT - AC; BG VENT RATE 26.0 set
[2025-04-08 15:43] LABS: BAND% 1.0 % (1.0-6.0); LYMPHOCYTES % MANUAL 13.0 % (20.0-60.0); MONOCYTES % MANUAL 10.0 % (2.0-8.0); NEUTROPHILS % MANUAL 76.0 % (45.0-75.0)
[2025-04-08 15:44] LABS: PLATELET ESTIMATE NORMAL
[2025-04-08 15:53] LABS: CLARITY URINE CLOUDY (CLEAR); COLOR URINE YELLOW (YELLOW); GLUCOSE URINE TRACE (NEGATIVE); KETONES URINE 1+ (NEGATIVE); LEUKOCYTE ESTERASE URINE NEGATIVE (NEGATIVE); NITRITE URINE NEGATIVE (NEGATIVE); OCCULT BLOOD URINE 2+ (NEGATIVE); PH URINE 5.0 (4.5-8.0); PROTEIN URINE 4+ (NEGATIVE); SPECIFIC GRAVITY URINE 1.020 (1.005-1.030); UROBILINOGEN URINE 0.2 E.U./dL (0.2-1.0)
[2025-04-08 15:59] LABS: BACTERIA URINE 2+; SQUAMOUS EPITHELIAL CELL URINE 1+ /lpf (RARE/1+)
[2025-04-08] MEDS: THIAMINE HCL 100 MG in SODIUM CHLORIDE 0.9% 49 ML IV SCH (16:03)
[2025-04-08 16:09] LABS: *AMPHETAMINES SCREEN URINE NEGATIVE (NEGATIVE); *BENZODIAZEPINES SCREEN URINE PRESUMPTIVE POSITIVE (NEGATIVE)
[2025-04-08 16:10] LABS: *BARBITURATES SCREEN URINE NEGATIVE (NEGATIVE); *COCAINE SCREEN URINE NEGATIVE (NEGATIVE); CANNABINOID URINE SCREEN NEGATIVE (NEGATIVE); ECSTASY MDMA SCREEN URINE NEGATIVE (NEGATIVE); METHADONE URINE SCREEN NEGATIVE (NEGATIVE); OPIATES URINE SCREEN NEGATIVE (NEGATIVE); PHENCYCLIDINE URINE SCREEN NEGATIVE (NEGATIVE)
[2025-04-08] MEDS ORDERED: LACTULOSE ENEMA 1,000ML BOTTLE PR SCH (18:00)
[2025-04-08] MEDS: VANCOMYCIN 1G PREMIX 200 ML IV SCH (21:26)
[2025-04-09] VITALS (99 sets, daily range): BP systolic 58–192; BP diastolic 24–130; PULSE 66–91; RESP 18–28; TEMP 36.1–37.9; O2SAT 98–100
[2025-04-09 01:17] LABS: UREA NITROGEN BLOOD 27.0 mg/dL (9-23)
[2025-04-09 01:22] LABS: CREATININE 5.3 mg/dL (0.6-1.0)
[2025-04-09 04:58] LABS: UREA NITROGEN BLOOD 28 mg/dL (9-23)
[2025-04-09 05:00] LABS: ASPARTATE AMINOTRANSFERASE 46 IU/L (<34); BILIRUBIN DIRECT 0.2 mg/dL (<=3.0); BILIRUBIN TOTAL 0.4 mg/dL (0.1-1.0); PROTEIN TOTAL 4.5 g/dL (6.0-8.3)
[2025-04-09 05:01] LABS: FOLIC ACID (FOLATE) SERUM 12.47 ng/mL (>5.38); VITAMIN B12 SERUM 648 pg/mL (211-911)
[2025-04-09 05:02] LABS: PLATELET 149 x1000/uL (130-400); RED BLOOD CELL COUNT 3.00 mill/uL (4.2-5.4); RED CELL DISTRIBUTION WIDTH 13.2 % (11.6-14.6)
[2025-04-09 05:05] LABS: CREATININE 5.5 mg/dL (0.6-1.0)
[2025-04-09 09:07] LABS: COMPLEMENT C3 106 mg/dL (82-167); COMPLEMENT C4 36 mg/dL (12-38)
[2025-04-09] MEDS: FAMOTIDINE 20MG/2ML VIAL IV SCH (10:22)
[2025-04-09 11:11] LABS: UREA NITROGEN BLOOD 25.0 mg/dL (9-23)
[2025-04-09 11:19] LABS: CREATININE 5.9 mg/dL (0.6-1.0)
[2025-04-09 12:59] LABS: UREA NITROGEN BLOOD 31.0 mg/dL (9-23)
[2025-04-09 13:00] LABS: CREATININE 6.0 mg/dL (0.6-1.0)
[2025-04-09 13:08] LABS: ANTI-NUCLEAR ANTIBODIES DIRECT Negative (Negative)
[2025-04-09 21:44] LABS: CREATININE 6.1 mg/dL (0.6-1.0); UREA NITROGEN BLOOD 32.0 mg/dL (9-23)
[2025-04-10] VITALS (47 sets, daily range): BP systolic 124–162; BP diastolic 57–128; PULSE 74–90; RESP 18–27; TEMP 36.50292–37.6; O2SAT 99–100
[2025-04-10 05:56] LABS: UREA NITROGEN BLOOD 37 mg/dL (9-23)
[2025-04-10 06:05] LABS: CREATININE 6.4 mg/dL (0.6-1.0)
[2025-04-10 06:06] LABS: PHOSPHORUS 0.9 mg/dL (2.5-4.9)
[2025-04-10 06:10] LABS: BASOPHILS % 0.2 % (0.0-2.0); EOSINOPHILS % 0.0 % (0.0-5.0); HEMATOCRIT. 26.5 % (36.0-48.0); HEMOGLOBIN. 9.2 g/dL (12.0-16.0); LYMPHOCYTES % 10.3 % (20.0-50.0); MEAN PLATELET VOLUME 9.2 fl (7.4-10.4); MONOCYTES % 4.4 % (2.0-8.0); NEUTROPHILS % 85.1 % (40.0-76.0); PLATELET 118 x1000/uL (130-400); RED BLOOD CELL COUNT 3.10 mill/uL (4.2-5.4); RED CELL DISTRIBUTION WIDTH 12.9 % (11.6-14.6)
[2025-04-10] MEDS: POTASSIUM CHLORIDE 20MEQ/PACKET PO NR (08:16)
[2025-04-10 09:18] LABS: BG BASE EXCESS 10.0 mmol/L (-2.0-3.0); BG CARBOXYHEMOGLOBIN 0.4 % (0.5-1.5); BG DEOXYHEMOGLOBIN 1.7 % (0.0-5.0); BG FRACTION INSPIRED OXYGEN 30; BG HCO3 ACT 31.5 mmol/L (21.0-28.0); BG METHEMOGLOBIN 0.1 % (0.5-1.5); BG OXYGEN SATURATION 98.3 % (94.0-98.0); BG OXYHEMOGLOBIN 97.8 % (94.0-98.0); BG PCO2 30.8 mmHg (32.0-45.0); BG PEEP (cmH2O) 5.0 cmH2O; BG PH 7.628 (7.350-7.450); BG PO2 107.9 mmHg (83.0-108.0); BG SAMPLE SITE RIGHT RADIAL; BG TIDAL VOLUME(mL) 500.0 mL; BG TOTAL HEMOGLOBIN 9.3 g/dL (12.0-16.0); BG VENT MODE VENT - AC; BG VENT RATE 20.0 set
[2025-04-10] MEDS: POTASSIUM PHOSPHATE 30 MMOL in SODIUM CHLORIDE 0.9% 490 ML IV NR (09:44)
[2025-04-10] MEDS: MAGNESIUM 4 G PREMIX 100 ML IV NR (09:44)
[2025-04-10 11:35] LABS: UREA NITROGEN BLOOD 41 mg/dL (9-23)
[2025-04-10 11:52] LABS: CREATININE 6.2 mg/dL (0.6-1.0)
[2025-04-10 11:54] LABS: PHOSPHORUS 1.0 mg/dL (2.5-4.9)
[2025-04-10] MEDS ORDERED: PROPOFOL 10MG/ML 100ML 100 ML IV PRN (22:45)
[2025-04-11] VITALS (108 sets, daily range): BP systolic 113–186; BP diastolic 57–122; PULSE 71–98; RESP 15–27; TEMP 36.8–37.3; O2SAT 96–100
[2025-04-11 04:44] LABS: BASOPHILS % 0.3 % (0.0-2.0); EOSINOPHILS % 0.1 % (0.0-5.0); HEMATOCRIT. 29.3 % (36.0-48.0); HEMOGLOBIN. 9.8 g/dL (12.0-16.0); LYMPHOCYTES % 7.8 % (20.0-50.0); MEAN PLATELET VOLUME 9.2 fl (7.4-10.4); MONOCYTES % 4.1 % (2.0-8.0); NEUTROPHILS % 87.7 % (40.0-76.0); PLATELET 95 x1000/uL (130-400); RED BLOOD CELL COUNT 3.35 mill/uL (4.2-5.4); RED CELL DISTRIBUTION WIDTH 13.5 % (11.6-14.6)
[2025-04-11 05:00] LABS: CREATININE 4.9 mg/dL (0.6-1.0)
[2025-04-11 05:01] LABS: TRIGLYCERIDE 104 mg/dL (0-150); UREA NITROGEN BLOOD 29 mg/dL (9-23)
[2025-04-11 05:03] LABS: PHOSPHORUS 1.1 mg/dL (2.5-4.9)
[2025-04-11] MEDS: POTASSIUM CHLORIDE 20MEQ/PACKET PO NR (08:12)
[2025-04-11] MEDS: POTASSIUM PHOSPHATE 30 MMOL in SODIUM CHLORIDE 0.9% 490 ML IV ONE (08:52)
[2025-04-11] MEDS: HYDRALAZINE 20MG/ML VIAL IV PRN (09:30)
[2025-04-11 11:07] LABS: BG BASE EXCESS 5.5 mmol/L (-2.0-3.0); BG CARBOXYHEMOGLOBIN 0.5 % (0.5-1.5); BG DEOXYHEMOGLOBIN 1.8 % (0.0-5.0); BG FRACTION INSPIRED OXYGEN 30; BG HCO3 ACT 27.9 mmol/L (21.0-28.0); BG METHEMOGLOBIN 0.1 % (0.5-1.5); BG OXYGEN SATURATION 98.2 % (94.0-98.0); BG OXYHEMOGLOBIN 97.6 % (94.0-98.0); BG PCO2 32.9 mmHg (32.0-45.0); BG PEEP (cmH2O) 5.0 cmH2O; BG PH 7.546 (7.350-7.450); BG PO2 105.9 mmHg (83.0-108.0); BG SAMPLE SITE RIGHT RADIAL; BG TIDAL VOLUME(mL) 500.0 mL; BG TOTAL HEMOGLOBIN 11.3 g/dL (12.0-16.0); BG VENT MODE VENT - AC; BG VENT RATE 20.0 set
[2025-04-11] MEDS ORDERED: BUDESONIDE 0.5MG/2ML NEB HHN SCH (16:00)
[2025-04-11] MEDS: VANCOMYCIN 500MG/100ML IV SCH (18:14)
[2025-04-11] MEDS: BUDESONIDE 0.5MG/2ML NEB HHN SCH (20:07)
[2025-04-11] MEDS: ATORVASTATIN CALCIUM 40MG TABLET PO SCH (20:59)
[2025-04-11] MEDS: AMLODIPINE 5MG TABLET PO SCH (21:01)
[2025-04-12] VITALS (96 sets, daily range): BP systolic 117–174; BP diastolic 49–122; PULSE 71–91; RESP 17–32; TEMP 37.1–37.6; O2SAT 95–100
[2025-04-12 06:52] LABS: CREATININE 4.8 mg/dL (0.6-1.0); UREA NITROGEN BLOOD 31 mg/dL (9-23)
[2025-04-12 07:05] LABS: BASOPHILS % 0.5 % (0.0-2.0); EOSINOPHILS % 0.5 % (0.0-5.0); HEMATOCRIT. 28.9 % (36.0-48.0); HEMOGLOBIN. 9.5 g/dL (12.0-16.0); LYMPHOCYTES % 9.1 % (20.0-50.0); MEAN PLATELET VOLUME 9.4 fl (7.4-10.4); MONOCYTES % 9.8 % (2.0-8.0); NEUTROPHILS % 80.1 % (40.0-76.0); PLATELET 106 x1000/uL (130-400); RED BLOOD CELL COUNT 3.25 mill/uL (4.2-5.4); RED CELL DISTRIBUTION WIDTH 13.2 % (11.6-14.6)
[2025-04-12 08:34] LABS: PHOSPHORUS 1.0 mg/dL (2.5-4.9)
[2025-04-12] MEDS: POTASSIUM PHOSPHATE 20 MMOL in DEXT 5% WATER 243.3333 ML IV SCH (11:55)
[2025-04-12] MEDS: ACETAMINOPHEN 650MG/20.3ML UDC PO PRN (13:46)
[2025-04-12 15:10] LABS: BG BASE EXCESS 4.7 mmol/L (-2.0-3.0); BG CARBOXYHEMOGLOBIN 0.2 % (0.5-1.5); BG DEOXYHEMOGLOBIN 2.9 % (0.0-5.0); BG FRACTION INSPIRED OXYGEN 30; BG HCO3 ACT 28.6 mmol/L (21.0-28.0); BG METHEMOGLOBIN 0.1 % (0.5-1.5); BG OXYGEN SATURATION 97.1 % (94.0-98.0); BG OXYHEMOGLOBIN 96.8 % (94.0-98.0); BG PCO2 39.8 mmHg (32.0-45.0); BG PEEP (cmH2O) 5.0 cmH2O; BG PH 7.474 (7.350-7.450); BG PO2 90.7 mmHg (83.0-108.0); BG SAMPLE SITE RIGHT RADIAL; BG TOTAL HEMOGLOBIN 10.1 g/dL (12.0-16.0); BG VENT MODE VENT - CPAP
[2025-04-13] VITALS (18 sets, daily range): BP systolic 128–177; BP diastolic 58–84; PULSE 7–88; RESP 15–26; TEMP 36.4–37.3; O2SAT 93–100
[2025-04-13] MEDS: ONDANSETRON HCL 4MG/2ML INJ IV PRN (01:13)
[2025-04-13 05:48] LABS: CREATININE 4.2 mg/dL (0.6-1.0)
[2025-04-13 05:49] LABS: UREA NITROGEN BLOOD 28 mg/dL (9-23)
[2025-04-13 05:51] LABS: PHOSPHORUS 2.6 mg/dL (2.5-4.9)
[2025-04-13 05:58] LABS: HEMATOCRIT. 30.1 % (36.0-48.0); HEMOGLOBIN. 10.0 g/dL (12.0-16.0); MEAN PLATELET VOLUME 9.2 fl (7.4-10.4); PLATELET 122 x1000/uL (130-400); RED BLOOD CELL COUNT 3.38 mill/uL (4.2-5.4); RED CELL DISTRIBUTION WIDTH 13.7 % (11.6-14.6)
[2025-04-13] MEDS: HYDROCODONE/ACETAMINOPHEN 5/325MG TABLET PO PRN (09:26)
[2025-04-13] MEDS: MAGNESIUM 2 G PREMIX 50 ML IV SCH (09:28)
[2025-04-13] MEDS: VANCOMYCIN 750MG/150ML (BAXTER) IV SCH (11:23)
[2025-04-13] MEDS: POTASSIUM CHLORIDE 20MEQ/PACKET PO NR (11:23)
[2025-04-13 17:52] LABS: EOSINOPHILS % MANUAL 1.0 % (0.0-5.0); LYMPHOCYTES % MANUAL 22.0 % (20.0-60.0); MONOCYTES % MANUAL 9.0 % (2.0-8.0); NEUTROPHILS % MANUAL 68.0 % (45.0-75.0); PLATELET ESTIMATE SLIGHTLY DECREASED
[2025-04-13] MEDS: IPRATROPIUM/ALBUTEROL 0.5-3(2.5)MG/3ML NEB HHN PRN (20:38)
[2025-04-13] MEDS: GUAIFENESIN 600MG ER TABLET PO SCH (20:50)
[2025-04-13] MEDS: ALPRAZOLAM 0.25 MG TABLET PO NR (22:55)
[2025-04-14] VITALS (14 sets, daily range): BP systolic 121–148; BP diastolic 56–70; PULSE 70–98; RESP 15–24; TEMP 36.6–37.9; O2SAT 96–99
[2025-04-14 05:36] LABS: CREATININE 3.7 mg/dL (0.6-1.0)
[2025-04-14 05:37] LABS: UREA NITROGEN BLOOD 35 mg/dL (9-23)
[2025-04-14 05:38] LABS: PHOSPHORUS 2.8 mg/dL (2.5-4.9)
[2025-04-14 05:43] LABS: HEMATOCRIT. 28.4 % (36.0-48.0); HEMOGLOBIN. 9.5 g/dL (12.0-16.0); MEAN PLATELET VOLUME 8.8 fl (7.4-10.4); PLATELET 184 x1000/uL (130-400); RED BLOOD CELL COUNT 3.20 mill/uL (4.2-5.4); RED CELL DISTRIBUTION WIDTH 13.9 % (11.6-14.6)
[2025-04-14] MEDS ORDERED: DEXT 5% WATER 500 ML IV NR (07:45)
[2025-04-14] MEDS: POTASSIUM CHLORIDE 20MEQ/PACKET PO NR (09:10)
[2025-04-14] MEDS: IPRATROPIUM/ALBUTEROL 0.5-3(2.5)MG/3ML NEB HHN SCH ×2 (09:13→20:12)
[2025-04-14] MEDS: PIPERACILLIN/TAZO 3.375G/50ML 50 ML IV SCH (09:14)
[2025-04-14] MEDS: RACEPINEPHRINE 2.25% 0.5ML NEB VIAL HHN SCH (09:30)
[2025-04-14] MEDS ORDERED: NALOXONE HCL 0.4MG/ML VIAL IV PRN (09:45)
[2025-04-14 10:28] LABS: BG BASE EXCESS 0.4 mmol/L (-2.0-3.0); BG CARBOXYHEMOGLOBIN 0.3 % (0.5-1.5); BG DEOXYHEMOGLOBIN 3.5 % (0.0-5.0); BG FLOW(L/min) 2.00 L/min; BG FRACTION INSPIRED OXYGEN 28; BG HCO3 ACT 24.9 mmol/L (21.0-28.0); BG METHEMOGLOBIN 0.3 % (0.5-1.5); BG OXYGEN SATURATION 96.5 % (94.0-98.0); BG OXYHEMOGLOBIN 95.9 % (94.0-98.0); BG PCO2 39.3 mmHg (32.0-45.0); BG PH 7.419 (7.350-7.450); BG PO2 84.2 mmHg (83.0-108.0); BG SAMPLE SITE RIGHT RADIAL; BG TOTAL HEMOGLOBIN 10.9 g/dL (12.0-16.0); BG VENT MODE NASAL CANNULA
[2025-04-14] MEDS: METHYLPREDNISOLONE SOD SUCC 40MG/ML (ACT-O-VIAL) IV SCH (11:14)
[2025-04-14 17:37] LABS: EOSINOPHILS % MANUAL 2.0 % (0.0-5.0); LYMPHOCYTES % MANUAL 19.0 % (20.0-60.0); MONOCYTES % MANUAL 15.0 % (2.0-8.0); NEUTROPHILS % MANUAL 64.0 % (45.0-75.0); PLATELET ESTIMATE NORMAL
[2025-04-14] MEDS: MELATONIN 3MG TABLET PO SCH (21:00)
[2025-04-14] MEDS: LORAZEPAM 2MG/ML UD SYRINGE IV PRN (21:04)
[2025-04-15] VITALS (11 sets, daily range): BP systolic 134–153; BP diastolic 52–113; PULSE 72–94; RESP 16–26; TEMP 36.4–36.8; O2SAT 94–99
[2025-04-15 07:50] LABS: CREATININE 3.1 mg/dL (0.6-1.0); HEMATOCRIT. 28.9 % (36.0-48.0); HEMOGLOBIN. 9.5 g/dL (12.0-16.0); MEAN PLATELET VOLUME 8.3 fl (7.4-10.4); PLATELET 261 x1000/uL (130-400); RED BLOOD CELL COUNT 3.25 mill/uL (4.2-5.4); RED CELL DISTRIBUTION WIDTH 13.8 % (11.6-14.6)
[2025-04-15 07:51] LABS: UREA NITROGEN BLOOD 28 mg/dL (9-23)
[2025-04-15 07:53] LABS: PHOSPHORUS 2.7 mg/dL (2.5-4.9)
[2025-04-15 17:18] LABS: LYMPHOCYTES % MANUAL 5.0 % (20.0-60.0); MONOCYTES % MANUAL 3.0 % (2.0-8.0); NEUTROPHILS % MANUAL 92.0 % (45.0-75.0); PLATELET ESTIMATE NORMAL
[2025-04-16] VITALS (12 sets, daily range): BP systolic 115–147; BP diastolic 58–63; PULSE 74–99; RESP 16–20; TEMP 36.1–36.6; O2SAT 93–99
[2025-04-16 06:18] LABS: CREATININE 2.5 mg/dL (0.6-1.0); UREA NITROGEN BLOOD 26.0 mg/dL (9-23)
[2025-04-16 06:19] LABS: PLATELET 323 x1000/uL (130-400); RED BLOOD CELL COUNT 3.21 mill/uL (4.2-5.4); RED CELL DISTRIBUTION WIDTH 13.8 % (11.6-14.6)
[2025-04-16] MEDS: KCL 20MEQ/100ML PREMIX 100 ML IV SCH (10:00)
[2025-04-17] VITALS (12 sets, daily range): BP systolic 134–162; BP diastolic 52–60; PULSE 70–96; RESP 18–20; TEMP 36.1–36.5; O2SAT 90–99
[2025-04-17 06:42] LABS: HEMATOCRIT. 26.5 % (36.0-48.0); HEMOGLOBIN. 8.9 g/dL (12.0-16.0); MEAN PLATELET VOLUME 8.0 fl (7.4-10.4); PLATELET 353 x1000/uL (130-400); RED BLOOD CELL COUNT 2.99 mill/uL (4.2-5.4); RED CELL DISTRIBUTION WIDTH 13.9 % (11.6-14.6)
[2025-04-17 07:01] LABS: CREATININE 2.2 mg/dL (0.6-1.0)
[2025-04-17 07:02] LABS: UREA NITROGEN BLOOD 24 mg/dL (9-23)
[2025-04-17 07:04] LABS: PHOSPHORUS 3.4 mg/dL (2.5-4.9)
[2025-04-17] MEDS: MAGNESIUM 1 G PREMIX 100 ML IV SCH (10:31)
[2025-04-17] MEDS ORDERED: MAGNESIUM 2 G PREMIX 50 ML IV ONE (11:15)
[2025-04-17] MEDS: POTASSIUM CHLORIDE 20MEQ TABLET SR PO NR (13:15)
[2025-04-17] MEDS: GUAIFENESIN/CODEINE 200-20MG/10ML UDC PO PRN (13:15)
[2025-04-17 15:25] LABS: LYMPHOCYTES % MANUAL 15.0 % (20.0-60.0); MONOCYTES % MANUAL 10.0 % (2.0-8.0); NEUTROPHILS % MANUAL 75.0 % (45.0-75.0)
[2025-04-17 15:26] LABS: PLATELET ESTIMATE NORMAL
[2025-04-17 16:29] LABS: BG BASE EXCESS -0.4 mmol/L (-2.0-3.0); BG CARBOXYHEMOGLOBIN 0.2 % (0.5-1.5); BG DEOXYHEMOGLOBIN 12.6 % (0.0-5.0); BG FRACTION INSPIRED OXYGEN 21; BG HCO3 ACT 23.1 mmol/L (21.0-28.0); BG METHEMOGLOBIN 0.1 % (0.5-1.5); BG OXYGEN SATURATION 87.4 % (94.0-98.0); BG OXYHEMOGLOBIN 87.1 % (94.0-98.0); BG PCO2 33.6 mmHg (32.0-45.0); BG PH 7.455 (7.350-7.450); BG PO2 50.3 mmHg (83.0-108.0); BG SAMPLE SITE RIGHT RADIAL; BG TOTAL HEMOGLOBIN 10.3 g/dL (12.0-16.0); BG VENT MODE ROOM AIR
[2025-04-17] MEDS: LEVETIRACETAM 500MG TABLET PO SCH (23:28)
[2025-04-17] MEDS: METHYLPREDNISOLONE SOD SUCC 40MG/ML (ACT-O-VIAL) IV SCH (23:28)
[2025-04-18] VITALS (16 sets, daily range): BP systolic 112–148; BP diastolic 38–93; PULSE 72–92; RESP 17–20; TEMP 35.9–36.6; O2SAT 96–100
[2025-04-18] MEDS ORDERED: HYDRALAZINE 10 MG in SODIUM CHLORIDE 0.9% 49.5 ML IV PRN (00:45)
[2025-04-18 12:55] LABS: BASOPHILS % 0.1 % (0.0-2.0); EOSINOPHILS % 0.1 % (0.0-5.0); HEMATOCRIT. 28.7 % (36.0-48.0); HEMOGLOBIN. 9.4 g/dL (12.0-16.0); LYMPHOCYTES % 7.2 % (20.0-50.0); MEAN PLATELET VOLUME 7.4 fl (7.4-10.4); MONOCYTES % 7.0 % (2.0-8.0); NEUTROPHILS % 85.6 % (40.0-76.0); PLATELET 364 x1000/uL (130-400); RED BLOOD CELL COUNT 3.25 mill/uL (4.2-5.4); RED CELL DISTRIBUTION WIDTH 14.0 % (11.6-14.6)
[2025-04-18 13:05] LABS: CREATININE 1.8 mg/dL (0.6-1.0); UREA NITROGEN BLOOD 23 mg/dL (9-23)
[2025-04-18 13:07] LABS: PHOSPHORUS 2.7 mg/dL (2.5-4.9)
[2025-04-18] MEDS: GUAIFENESIN-DM 200MG-20MG/10ML UDC PO PRN (15:42)
[2025-04-18] MEDS ORDERED: HYDROCODONE/ACETAMINOPHEN 5/325MG TABLET PO PRN (17:30)
[2025-04-18] MEDS: FAMOTIDINE 20MG TABLET PO SCH (21:01)
[2025-04-18] MEDS: ACETYLCYSTEINE 200MG/ML 20% VIAL 4ML INH SCH (21:06)
[2025-04-19 02:22] VITALS: PULSE 75; RESP 20; O2SAT 99
[2025-04-19 08:00] VITALS: BP 129/62; PULSE 76; RESP 18; TEMP 36.2; O2SAT 98
[2025-04-19] MEDS: METHYLPREDNISOLONE SOD SUCC 40MG/ML (ACT-O-VIAL) IV SCH (09:11)
[2025-04-19 12:00] VITALS: BP 143/74; PULSE 76; RESP 18; TEMP 36.1; O2SAT 100
[2025-04-19 16:00] VITALS: BP 133/54; PULSE 75; RESP 18; TEMP 36.1; O2SAT 100
[2025-04-19 20:00] VITALS: BP 126/41; PULSE 72; RESP 18; TEMP 36.6; O2SAT 99
[2025-04-19 20:11] VITALS: PULSE 75; RESP 18; O2SAT 96
[2025-04-19] MEDS: LORAZEPAM 2MG/ML UD SYRINGE IV PRN (21:31)
[2025-04-20] VITALS (8 sets, daily range): BP systolic 117–142; BP diastolic 45–80; PULSE 68–85; RESP 17–68; TEMP 36.4–36.8; O2SAT 96–99
[2025-04-20 06:58] LABS: CREATININE 1.5 mg/dL (0.6-1.0); UREA NITROGEN BLOOD 15.0 mg/dL (9-23)
[2025-04-20 07:07] LABS: PLATELET 286 x1000/uL (130-400); RED BLOOD CELL COUNT 3.00 mill/uL (4.2-5.4); RED CELL DISTRIBUTION WIDTH 13.9 % (11.6-14.6)
[2025-04-21] VITALS (8 sets, daily range): BP systolic 120–155; BP diastolic 40–66; PULSE 19–76; RESP 16–20; TEMP 36.4–37.1; O2SAT 97–100
[2025-04-21] MEDS: TRAMADOL 50MG TABLET PO NR (06:03)
[2025-04-21] MEDS: IPRATROPIUM/ALBUTEROL 0.5-3(2.5)MG/3ML NEB HHN PRN (08:05)
[2025-04-21] MEDS ORDERED: KEPP500 PO ×2 (08:12→22:47)
== END 2025-04-21 21:40 | disposition home or self-care (01) | DRG 870 ==
LOC: ER 07:20 → EDBEDREQTM 10:04 → EDBEDREQ 10:04 → EDBEDREQSVC 10:05 → ENRESERV 12:32 → 5EST 13:28 → ENRESERV 13:29 → MICUSO 19:18 → 5EST 04-12 23:58 → 6WST 04-15 09:17 → 6EST 04-18 00:19
PROVIDERS: ADMIT Hospitalist; ATTEND Hospitalist
PROC: 5A1955Z Respiratory Ventilation, Greater than 96 Consecutive Hours (ICD-10-PCS; principal; 2025-04-07)
PROC: 0BH17EZ Insertion of Endotracheal Airway into Trachea, Via Natural or Artificial Opening (ICD-10-PCS; 2025-04-07)
PROC: 02HV33Z Insertion of Infusion Device into Superior Vena Cava, Percutaneous Approach (ICD-10-PCS; 2025-04-07)
PROC: B548ZZA Ultrasonography of Superior Vena Cava, Guidance (ICD-10-PCS; 2025-04-07)
PROC: 02HV33Z Insertion of Infusion Device into Superior Vena Cava, Percutaneous Approach (ICD-10-PCS; 2025-04-07)
PROC: B548ZZA Ultrasonography of Superior Vena Cava, Guidance (ICD-10-PCS; 2025-04-07)
PROC: 5A1D70Z Performance of Urinary Filtration, Intermittent, Less than 6 Hours Per Day (ICD-10-PCS; 2025-04-07)
PROC: 5A1D70Z Performance of Urinary Filtration, Intermittent, Less than 6 Hours Per Day (ICD-10-PCS; 2025-04-08)
PROC: 5A1D70Z Performance of Urinary Filtration, Intermittent, Less than 6 Hours Per Day (ICD-10-PCS; 2025-04-10)
DX: A41.9 Sepsis, unspecified organism (principal); E11.10 Type 2 diabetes mellitus with ketoacidosis without coma; R65.21 Severe sepsis with septic shock; G92.8 Other toxic encephalopathy; J96.01 Acute respiratory failure with hypoxia; N17.0 Acute kidney failure with tubular necrosis; N18.6 End stage renal disease; R57.1 Hypovolemic shock; I12.0 Hypertensive chronic kidney disease with stage 5 chronic kidney disease or end stage renal disease; N12 Tubulo-interstitial nephritis, not specified as acute or chronic; Z79.01 Long term (current) use of anticoagulants; D64.9 Anemia, unspecified; E11.22 Type 2 diabetes mellitus with diabetic chronic kidney disease; E66.01 Morbid (severe) obesity due to excess calories; G40.909 Epilepsy, unspecified, not intractable, without status epilepticus; K75.81 Nonalcoholic steatohepatitis (NASH); E72.20 Disorder of urea cycle metabolism, unspecified; E87.1 Hypo-osmolality and hyponatremia; G95.20 Unspecified cord compression; E87.4 Mixed disorder of acid-base balance; Z68.41 Body mass index [BMI] 40.0-44.9, adult; K83.8 Other specified diseases of biliary tract; E83.39 Other disorders of phosphorus metabolism; K52.9 Noninfective gastroenteritis and colitis, unspecified; I25.10 Atherosclerotic heart disease of native coronary artery without angina pectoris; E86.9 Volume depletion, unspecified; E83.42 Hypomagnesemia; E87.5 Hyperkalemia; E87.6 Hypokalemia; E87.8 Other disorders of electrolyte and fluid balance, not elsewhere classified; R13.12 Dysphagia, oropharyngeal phase; E78.00 Pure hypercholesterolemia, unspecified; Z90.49 Acquired absence of other specified parts of digestive tract; Z79.84 Long term (current) use of oral hypoglycemic drugs; Z79.899 Other long term (current) drug therapy; Z86.718 Personal history of other venous thrombosis and embolism; Z88.5 Allergy status to narcotic agent; Z98.1 Arthrodesis status; Z88.8 Allergy status to other drugs, medicaments and biological substances
CPT/HCPCS: 31500; 31720; 36415; 36600; 71045; 74176; 76705; 76770; 80048; 80061; 80076; 80202; 80305; 81003; 82010; 82140; 82270; 82375; 82550; 82607; 82746; 82805; 82962; 83036; 83540; 83550; 83605; 83735; 83880; 83930; 84100; 84145; 84439; 84443; 84478; 84484; 85025; 85027; 85044; 86038; 86160; 86705; 86709; 86850; 86900; 86920; 87015; 87045; 87070; 87077; 87186; 87340; 87427; 87449; 87493; 89055; 90935; 93005; 93970; 94002; 94003; 94070; 94640; 94664; 94760; 97116; 97162; 97166; 97530; 97535; 98960; 99291; A4606; J0360; J1308; J1650; J1815; J1885; J1953; J2060; J2250; J2371; J2405; J2470; J2543; J2704; J2919; J3373; J3411; J3475; J3480; J3490; J7030; J7040; J7060; J7070; J7120; J7608; J7626; J0131